=== PATIENT | female | born 1955 | race Caucasian/White ===

== ENCOUNTER 2022-11-19 11:00 | Emergency (ER) | payer BC ==
[2022-11-19] MEDS ORDERED: Ibuprofen 600 MG Tab PO ONE (12:45)
== END 2022-11-19 12:50 | disposition home or self-care (01) ==
LOC: JD.ED 11:00
DX: S52.571A Other intraarticular fracture of lower end of right radius, initial encounter for closed fracture (principal); I10 Essential (primary) hypertension; E03.9 Hypothyroidism, unspecified; E66.9 Obesity, unspecified; Z68.41 Body mass index [BMI] 40.0-44.9, adult; Z88.5 Allergy status to narcotic agent; Z88.7 Allergy status to serum and vaccine; Z79.899 Other long term (current) drug therapy; W00.0XXA Fall on same level due to ice and snow, initial encounter
CPT/HCPCS: 99283; A9270; 29125

== ENCOUNTER 2024-11-08 06:00 | Day surgery (SDC) | payer BC, OTHER ==
[~2024-11-08 06:00] MED LIST: Sodium Chloride 0.9% 10 ML Syringe FLUSH PRN; Sodium Chloride 0.9% 10 ML Syringe FLUSH SCH
[2024-11-08] MEDS ORDERED: Tranexamic Acid 1,000 MG/10 ML Vial ONE (06:07)
[2024-11-08] MEDS: Lactated Ringers 1,000 ML IV SCH (06:15)
[2024-11-08] MEDS ORDERED: Midazolam 1 MG/ML 2 ML SDV ONE (06:34)
[2024-11-08] MEDS ORDERED: Propofol 200 MG/20 ML SDV ONE ×3 (06:35→08:16)
[2024-11-08] MEDS ORDERED: Chloroprocaine 3% 30 MG/ML 20 ML SDV ONE (06:36)
[2024-11-08] MEDS ORDERED: Ropivacaine 0.5% 5 MG/ML 30 ML SDV ONE (06:40)
[2024-11-08] MEDS ORDERED: Lactated Ringers 1,000 ML IV ONE (08:00)
[2024-11-08] MEDS ORDERED: ePHEDrine 50 MG/ML SDV ONE (08:00)
[2024-11-08] MEDS ORDERED: ceFAZolin 2 GM Vial ONE ×2 (08:00→12:44)
[2024-11-08] MEDS ORDERED: Dexamethasone 4 MG/ML 5 ML MDV ONE (08:15)
[2024-11-08] MEDS: Morphine 8 MG, EPINEPHrine 0.3 MG, Cefuroxime 750 MG, Ketorolac 30 MG, Sodium Chloride ... PRN (08:18)
[2024-11-08] MEDS: VANCOmycin 1 GM SDV ONE (08:19)
[2024-11-08] MEDS: Triamcinolone Acetonide 40 MG/ML 1 ML SDV ONE (08:19)
[2024-11-08] MEDS: Bupivacaine 0.25% 10 ML SDV ONE (08:40)
[2024-11-08] MEDS ORDERED: HYDROmorphone 0.5 MG/0.5 ML Syringe IVPUSH PRN (08:58)
[2024-11-08] MEDS ORDERED: Ondansetron 4 MG/2 ML SDV IVPUSH PRN (08:58)
[2024-11-08] MEDS ORDERED: fentaNYL 100 MCG/2 ML SDV IVPUSH PRN (08:58)
[2024-11-08] MEDS: oxyCODONE 5 MG Tab PO PRN (10:02)
== END 2024-11-08 13:00 | disposition home or self-care (01) ==
LOC: JD.SDS 06:00
PROVIDERS: ATTEND Orthopaedic Surgery
DX: M17.0 Bilateral primary osteoarthritis of knee (principal); I10 Essential (primary) hypertension; E78.5 Hyperlipidemia, unspecified; E03.9 Hypothyroidism, unspecified; Z88.5 Allergy status to narcotic agent; Z88.8 Allergy status to other drugs, medicaments and biological substances; Z79.890 Hormone replacement therapy; Z79.899 Other long term (current) drug therapy
CPT/HCPCS: 0055T; 20610; 27447; 73560; 97110; 97116; 97161; A9270; C1713; C1776; J0171; J0665; J0690; J0697; J1100; J1885; J2250; J2272; J2401; J2704; J2795; J3301; J7120; 01400; 64447; J3490